=== PATIENT | female | born 1960 | race Caucasian/White ===

== ENCOUNTER → 2017-01-02 | Outpatient (CLI) | payer OTHER | LOC: NUC 09:57 → RAD 09:57 | DX: Z12.31 Encounter for screening mammogram for malignant neoplasm of breast (principal); Z78.0 Asymptomatic menopausal state; N91.2 Amenorrhea, unspecified ==

== ENCOUNTER → 2018-03-01 | Outpatient (CLI) | payer OTHER | LOC: RAD 15:16 | DX: Z12.31 Encounter for screening mammogram for malignant neoplasm of breast (principal) ==

== ENCOUNTER → 2019-05-26 | Outpatient (CLI) | payer OTHER | LOC: BC 10:02 → NUC 10:02 | DX: Z12.31 Encounter for screening mammogram for malignant neoplasm of breast (principal); M85.89 Other specified disorders of bone density and structure, multiple sites ==

== ENCOUNTER → 2020-06-16 | Outpatient (CLI) | payer OTHER | LOC: RAD 14:46 | PROVIDERS: ATTEND Obstetrics & Gynecology | DX: Z12.31 Encounter for screening mammogram for malignant neoplasm of breast (principal) ==

== ENCOUNTER → 2021-03-01 | Outpatient (CLI) | payer BC, OTHER | LOC: RAD 16:01 | PROVIDERS: ATTEND Obstetrics & Gynecology | DX: M46.1 Sacroiliitis, not elsewhere classified (principal) ==

== ENCOUNTER → 2021-06-29 | Outpatient (CLI) | payer BC, OTHER | LOC: NUC 09:58 | PROVIDERS: ATTEND Obstetrics & Gynecology | DX: Z12.31 Encounter for screening mammogram for malignant neoplasm of breast (principal); M85.88 Other specified disorders of bone density and structure, other site ==

== ENCOUNTER → 2021-07-27 | Outpatient (CLI) | payer BC ==
[2021-07-27 11:36] LABS: CREATININE 0.7 mg/dL (0.6-1.0)
== END ==
LOC: MRI 10:26
PROVIDERS: ATTEND Physical Medicine & Rehabilitation Pain Medicine
DX: N83.202 Unspecified ovarian cyst, left side (principal); M89.38 Hypertrophy of bone, other site; M46.1 Sacroiliitis, not elsewhere classified